=== PATIENT | male | born 1980 | race Caucasian/White ===

== ENCOUNTER 2016-04-09 16:03 | Emergency (ER) | payer BC ==
[~2016-04-09] VITALS: Ht 177.8 cm; Wt 98.5 kg
[2016-04-09] MEDS ORDERED: TERBINAFINE HC250 MG PO (18:50)
[2016-04-09] MEDS ORDERED: CARAFATE100 MG/ML PO (18:51)
[2016-04-09 19:05] LABS: HEMATOCRIT 46.5 % (38.0-50.0); MCH 29.8 PG (29.0-34.0); MCHC 35.9 G/DL (30.0-36.0); MCV 82.9 FL (86-99); MEAN PLAT.VOLUME 11.6 uM^3 (9.0-12.4); PLATELET COUNT 215 K/uL (156-360); RBC DIS.WIDTH-CV 11.9 % (11.8-14.6); RBC DIS.WIDTH-SD 36.1 % (39-53); RED BLOOD COUNT 5.61 M/uL (4.00-5.50); WHITE BLOOD COUNT 8.7 K/uL (4.1-10.2)
[2016-04-09 19:13] LABS: CHLORIDE 106 mEq/L (99-109); SODIUM 141 mEq/L (136-147)
[2016-04-09 19:15] LABS: GLUCOSE 95 mg/dL (70-99)
[2016-04-09 19:16] LABS: ANION GAP 11 MEQ/L (2-14)
[2016-04-09 19:17] LABS: TOTAL BILIRUBIN 0.9 mg/dL (0.0-1.0)
[2016-04-09 19:19] LABS: ALKALINE PHOSPHATASE 84 IU/L (3-129); GFR ESTIMATE (CALCULATED) > 59 mL/min/
[2016-04-09 19:20] LABS: UREA NITROGEN (BUN) 10 mg/dL (9-23)
[2016-04-09 19:22] LABS: LIPASE 28 U/L (1.0-51.0)
[2016-04-09 21:32] VITALS: BP 144/89
== END 2016-04-09 21:32 | disposition home or self-care (01) ==
LOC: EME 16:03
PROVIDERS: Physician Assistant Medical
DX: K21.9 Gastro-esophageal reflux disease without esophagitis (principal); K20.9 Esophagitis, unspecified; R11.0 Nausea; R19.7 Diarrhea, unspecified
CPT/HCPCS: 76705; 80053; 83690; 85027; 99281; 99285

== ENCOUNTER 2017-02-26 05:36 | Emergency (ER) | payer BC ==
[~2017-02-26] VITALS: Ht 172.7 cm; Wt 94.0 kg
[~2017-02-26 05:36] MED LIST: CARAFATE100 MG/ML PO; TERBINAFINE HC250 MG PO
[2017-02-26 06:01] LABS: HEMATOCRIT 49.7 % (38.0-50.0); HEMOGLOBIN 17.4 G/DL (12.5-16.6); MCV 85.7 FL (86-99); PLATELET COUNT 210 K/uL (156-360); RBC DIS.WIDTH-CV 11.8 % (11.8-14.6); RBC DIS.WIDTH-SD 36.7 % (39-53); WHITE BLOOD COUNT 6.6 K/uL (4.1-10.2)
[2017-02-26 06:11] LABS: CHLORIDE 108 mEq/L (99-109); SODIUM 141 mEq/L (136-147)
[2017-02-26 06:13] LABS: GLUCOSE 105 mg/dL (70-99)
[2017-02-26 06:17] LABS: CREATININE 0.9 mg/dL (0.6-1.3); GFR ESTIMATE (CALCULATED) > 59 mL/min/ (58.99-99999)
[2017-02-26 06:18] LABS: UREA NITROGEN (BUN) 11 mg/dL (9-23)
[2017-02-26 06:22] LABS: TROP-I INTERPRETATION NEGATIVE; TROPONIN-I < 0.01 ng/mL (0.0-0.30)
[2017-02-26 08:15] LABS: ALBUMIN 4.4 g/dL (3.2-4.8)
[2017-02-26 08:17] LABS: TOTAL PROTEIN 7.9 g/dL (6.4-8.3)
[2017-02-26 08:19] LABS: TOTAL BILIRUBIN 0.8 mg/dL (0.0-1.0)
[2017-02-26 08:20] LABS: ALKALINE PHOSPHATASE 84 IU/L (3-129)
[2017-02-26 08:23] LABS: AST (GOT) 34 IU/L (2-34); DIRECT BILIRUBIN 0.2 mg/dL (0.0-0.3)
[2017-02-26 08:24] LABS: ALT (GPT) 44 IU/L (3-49); LIPASE 15 U/L (1.0-51.0)
[2017-02-26] MEDS ORDERED: MOTRIN800 MG PO (08:52)
[2017-02-26 09:08] VITALS: BP 122/78
[2017-02-26] MEDS ORDERED: NO HOME MEDS (09:48)
== END 2017-02-26 09:08 | disposition home or self-care (01) ==
LOC: EME 05:36
DX: M54.6 Pain in thoracic spine (principal); M25.511 Pain in right shoulder; R05 Cough
CPT/HCPCS: 71046; 80048; 80076; 83690; 84484; 85027; 93005; 99281; 99283

== ENCOUNTER → 2017-03-06 | Outpatient (CLI) | payer BC ==
[~2017-03-06] MED LIST changes: +MOTRIN800 MG PO; +NO HOME MEDS
== END | disposition home or self-care (01) ==
LOC: NUC 06:39
DX: K31.89 Other diseases of stomach and duodenum (principal); R14.0 Abdominal distension (gaseous); K21.9 Gastro-esophageal reflux disease without esophagitis; R19.8 Other specified symptoms and signs involving the digestive system and abdomen
CPT/HCPCS: 78264; A9541